=== PATIENT | female | born 1965 | race Caucasian/White ===

== ENCOUNTER 2023-09-13 05:34 | Emergency (ER) | payer BC, SELFPAY ==
[2023-09-13 05:38] VITALS: BP 126/76
[2023-09-13 05:52] VITALS: BMI 28.5
[2023-09-13 06:00] VITALS: BP 107/59
--- NOTE | 2023-09-13 06:08 | EDRN ---
Pt celebrated her anniversary last night - had salmon, creme brulee, champagne and a raspberry/lemonade drink. Pt woke at 0405 with pressure in the center of her chest radiating straight through to her back, in between shoulder blades. Pt was
sweaty when she woke however pt says she usually wakes in a sweat 'but this was different.' Pt rolled onto her L side to try and relieve the pressure. Pt got up and walked around, then got dizzy and her palms were sweaty. Pt thought she might be
getting anxious and tried to calm herself with exercises. Pt did not take any medication for chest pain. Pain constant, worse if she takes a deep breath. No recent airplane or long car ride travel. No calf pain or increased swelling. Pt notes
some swelling when she is on her feet for long periods of time. Pt had waves of nausea on the way to the hospital. No vomiting, fever/chills/cough, abdominal pain.
[2023-09-13 06:17] LABS: % Basophils 0.9 % (0-2); % Eosinophils 2.3 % (0-6); % Immature Granulocytes 0.3 % (0-0.5); % Lymphocytes 38.5 % (20.5-51.1); % Monocytes 7.7 % (1.7-9.3); % Neutrophils 50.3 % (42.2-75.2); Absolute Basophils 0.1 10^3/uL (0-0.2); Absolute Eosinophils 0.2 10^3/uL (0-0.7); Absolute Lymphocytes 2.5 10^3/uL (1.2-3.4); Absolute Monocytes 0.5 10^3/uL (0.1-0.6); Absolute Neutrophils 3.3 10^3/uL (1.4-6.5); Hematocrit 37.2 % (37.0-47.0); Hemoglobin 13.1 g/dL (12.0-16.0); Mean Corp Hgb Conc. 35.2 g/dL (33.0-37.0); Mean Corpuscular Volume 88.2 fL (81.0-99.0); Mean Platelet Volume 9.7 fL (7.4-10.4); Nucleated Red Blood Cells % 0 %; Platelet Count 275 10^3/uL (130-400); Red Blood Cell Count 4.22 10^6/uL (4.20-5.40); Red Cell Dist. Width 12.3 % (11.5-14.5); White Blood Cell Count 6.6 10^3/uL (4.8-10.8)
[2023-09-13 06:35] LABS: ALT (SGPT) 25 U/L (0-35); AST (SGOT) 36 U/L (14-36); Alkaline Phosphatase 86 U/L (38-126); Blood Urea Nitrogen 18 mg/dl (7-17); Calcium 9.6 mg/dl (8.4-10.2); Carbon Dioxide 27 mmol/L (22-30); Chloride 104 mmol/L (98-107); Estimated Creatinine Clearance 88 ml/min; Glucose 112 mg/dl (70-99); Potassium 3.7 mmol/L (3.5-5.1); Sodium 139 mmol/L (135-145); Total Bilirubin 0.3 mg/dl (0.2-1.3); Total Protein 6.9 g/dl (6.3-8.2); eGFR > 60.00
[2023-09-13 06:46] LABS: Troponin I < 0.012 ng/ml
[2023-09-13] MEDS: CARAFATE 1 GRAM PO (07:19)
[2023-09-13 07:26] VITALS: BP 111/75
[2023-09-13 07:44] LABS: D-Dimer 0.37 ug/mlFEU (0.00-0.50)
--- NOTE | 2023-09-13 08:14 | ED.GENMED ---
History of Present Illness
General
Chief Complaint: Chest Pain
Source: patient, records and spouse
Exam Limitations: none
Time Seen by Provider: 09/13/23 06:17
Nursing documentation reviewed up to this point in time: agreed with
Travel History
Have you had any contact with someone who has COVID-19?: No
Do you have any symptoms of coronavirus? Fever > 100 degrees, chills, cough, shortness of breath, sore throat, loss of taste or smell, muscle aches, or headache?: No
History of Present Illness
History of Present Illness:
Patient is a 57-year-old female who presents to the emergency department complaining of a central chest pressure radiating into her upper chest and into her back. Patient feels like she cannot take a deep breath because the pain then becomes
stabbing. Patient feels sweaty palms. Patient did pass some gas with no relief. Patient denies shortness of breath, leg pain or swelling. Patient denies history of hypertension or diabetes. Patient does have strong family history as well as
elevated cholesterol which the HDL is high. Patient does not smoke. Patient has no history of PE or DVT. Patient denies any GI or symptoms. Patient denies fever or chills, nasal congestion, sore throat or cough. In July 2022 patient had an
exercise stress test along with an echocardiogram which were normal. Patient denies any recent exertional symptoms.
Past History
Past History
ED Past Medical History: Hypercholesterolemia and Psychiatric (anxiety/Depression); Negative HTN, IDDM or NIDDM
ED Past Surgical History: Gynecological (LEEP) and Tonsilectomy
Social History
Tobacco: Non-smoker
Family History
Family History: CAD
Review of Systems
Review of Systems
All Other Systems: ROS reviewed and negative except as documented in HPI and ROS
Constitutional: Reports no symptoms
EENT: Reports no symptoms
Respiratory: Reports no symptoms
Cardiac: Reports chest pain; Denies palpitations or syncope
ABD/GI: Reports no symptoms
: Reports no symptoms
Musculoskeletal: Reports no symptoms
Skin: Reports no symptoms
Neurological: Reports no symptoms
Hematologic/Lymphatic: Reports no symptoms
Psychiatric: Reports no symptoms
Phy Exam
Physical Exam
Physical Exam:
Physical Exam
General: mild distress, alert and appropriate, well nourished, well hydrated
HENT: Normocephalic, supple with no lymphadenopathy, no thyromegaly
Eyes: Clear sclera, conjuctiva without injection
Heart: Regular rhythm and rate. No S3, S4. No murmur. No NVD, bruit
Lungs: No respiratory distress, no stridor, lung sounds clear and equal bilaterally, chest wall symmetrical and nontender
Abdomen: Soft, nontender, no organomegaly, no CVA tenderness, BS good
Neuro: Alert and oriented x 3, CN II - XII intact, no motor focality, no cerebellar dysfunction
Skin: no rash
Psychiatric: well kept. interactive and cooperative
Extremities: No edema, cyanosis, tenderness, Good and equal peripheral pulses.
Scores
Heart Score for Chest Pain Patients
STEMI patient?: No
History: Slightly or Non-Suspicious
ECG: Normal
Age: >45 - <65 years
Risk Factors: 1 or 2 Risk Factors
Troponin: </= Normal Limit
Heart Score for Chest Pain Patients: 2
Heart Score Risk: 2.5% MACE over next 6 weeks
Course
Orders/Labs/Results
Orders:
Orders
09/13/23 05:37
EKG [Electrocardiogram (*1)] Urgent
Reason for Study: Chest Pain
EKG- Treatment ONCE
09/13/23 05:50
Cardiac Monitoring- Treatment ONCE
IV Insert/Care/Rem.- Treatment PRN
O2 Therapy [RESP] Urgent
Titrate/Wean O2 to maintain O2 sat greater than (%): 90
Special Instructions: Maintain sats >/=90%
Pulse Ox/spot Check [RESP] Urgent
Quantity: 1
Special Instructions: ON ROOM AIR
09/13/23 06:01
Complete Blood Count/With Diff Urgent
Comprehensive Metabolic Panel Urgent
Troponin I Urgent
09/13/23 06:41
Mag Hydrox/Al Hydrox/Simeth [Maalox] 30 ml Phenobarb/Hyoscy/Atropine/Scop [] 10 ml Viscous Lidocaine 2% [Xylocaine Viscous Cup] 10 ml PO NOW
Pantoprazole [Protonix IV] 80 mg IV NOW STA
Sucralfate [Carafate] 1 gram PO NOW STA
09/13/23 07:02
D-Dimer Urgent
09/13/23 07:07
Mag Hydrox/Al Hydrox/Simeth [Maalox] 30 ml .ROUTE .STK-MED ONE
Phenobarb/Hyoscy/Atropine/Scop [] 10 ml .ROUTE .STK-MED ONE
Viscous Lidocaine 2% [Xylocaine Viscous Cup] 15 ml .ROUTE .STK-MED ONE
09/13/23 07:54
EKG- Treatment ONCE
09/13/23 09:00
Electrocardiogram (*1) Urgent
Reason for Study: Chest Pain
Troponin I Urgent
09/13/23 09:22
0.9% Sodium Chloride 1000 ml [Nss] 1,000 ml IV BOLUS
Ketorolac [Toradol] 15 mg IV NOW STA
Ondansetron Injectable [Zofran] 4 mg IV NOW STA
09/13/23 09:23
CT Chest Pe Study Urgent
Comment:
Reason For Exam: severe right chest pain
09/13/23 09:46
Mag Hydrox/Al Hydrox/Simeth [Maalox] 30 ml PO NOW STA
Abnormal Lab Results
09/13/23
06:01
BUN 18 H mg/dl
(717)
Glucose 112 H mg/dl
(70-99)
09/13/23 06:01
09/13/23 06:01
Vital Signs
Initial and Last Documented VS:
Initial Vital Signs
Temp Pulse Resp BP Pulse Ox
97.9 F 62 17 126/76 100
09/13/23 05:38 09/13/23 05:38 09/13/23 05:38 09/13/23 05:38 09/13/23 05:38
Last Documented Vital Signs
Temp Pulse Resp BP Pulse Ox
97.9 F 84 19 118/78 98
09/13/23 05:38 09/13/23 11:07 09/13/23 11:07 09/13/23 11:07 09/13/23 11:07
*Radiology
Radiology exam reviewed: other (na)
*Pulse Oximetry
Patient hypoxic: no
*EKG
Interpreted by ED Provider?: Yes
EKG Intrepretation Date: 09/13/23
EKG Intrepretation Time: 08:19
Interpretation: normal
Comparison EKG: no changes
Heart Rate: 63
Rate: normal
Rhythm: sinus
Vinton: normal axis
Interval: normal interval
QRS Pattern: normal QRS
Ischemia: no ischemia
*Dry Dip Worker Interpretation
Rate: normal
Interpretation: normal
Heart Rate: 65
Rhythm: sinus
*Critical Care Note
Total Time (30-74mins, 75-104mins- exclusive of procedures): Not Applicable
Update Note
Update Note:
Patient did not want to GI cocktail or the Protonix. Patient now having more severe pain on the right. Patient's D-dimer is normal I doubt PE or dissection however given the degree of the patient's pain we will do a CT of the chest. This could
all be musculoskeletal. Discussed the findings with the patient. Does not appear to be cardiac and I be surprised if it is gallbladder or dissection. May be GI in musculoskeletal.
Patient feels much improved with the Toradol. Patient's workup is totally negative which is not surprising.
ED Attending Note
-
Portions of this chart may have been created with voice recognition software.� Occasional wrong word or��sound alike� substitutions may have occurred due to the inherent limitations of voice recognition software.
Discharge Plan
Departure
Patient Disposition: Home (Routine Discharge)
Date of Disposition: 09/13/23
Time of Disposition: 12:15
Patient with high blood pressure during this ER visit?: No
Condition: Fair
Covid-19: Not Applicable
Discharge Problem:
Non-cardiac chest pain
Instructions: Chest Pain That Is Not Caused by the Heart (DC), Costochondritis (DC)
Prescriptions:
New
ketorolac 10 mg tablet
10 mg PO QID PRN (Reason: pain) Qty: 20 0RF
Referrals:
Rodrigo Tran, DO [Family Provider] - Follow up in 5-7 days
Interventions
Interventions:
*Risk Screen - Suicide Last Done: 09/13/23 05:53
*General Assessment Last Done: 09/13/23 05:53
*Neglect/Abuse Screening Last Done: 09/13/23 05:53
ED- Fall Risk Assessment Last Done: 09/13/23 06:03
*ED COVID-19 Vaccine History Last Done: 09/13/23 05:53
ED- Cardiac Assessment Last Done: 09/13/23 05:57
Discharge Date and Time
Print Language: MONGOLIAN
[2023-09-13 08:26] VITALS: BP 115/71
[2023-09-13] MEDS: NSS 1000 IV (09:28)
[2023-09-13] MEDS: TORADOL 15 MG IV (09:29)
[2023-09-13] MEDS: ZOFRAN 4 MG IV (09:29)
[2023-09-13] MEDS: MAALOX 30 ML PO (09:47)
[2023-09-13 10:01] LABS: Troponin I < 0.012 ng/ml
[2023-09-13 11:07] VITALS: BP 118/78
== END 2023-09-13 12:24 | disposition home or self-care (01) ==
LOC: EMR 05:34
PROVIDERS: EMERGENCY PHYSICIAN Emergency Medicine; FAMILY PHYSICIAN Family Medicine
DX: R07.89 Other chest pain (principal)
CPT/HCPCS: 99285; 96374; 96375 ×2; 96361; 71275; 80053; 84484; 85025; 85379; 93005; Q9967

== ENCOUNTER → 2023-09-19 13:04 | Outpatient (REF) | payer BC, SELFPAY ==
[2023-09-19 14:02] LABS: Urine Albumin Negative (Neg - Trace); Urine Bilirubin Negative (Negative); Urine Character Clear (Clear); Urine Color Yellow; Urine Glucose Negative (Negative); Urine Ketone Negative (Negative); Urine Leukocyte Negative (Negative); Urine Nitrite Negative (Negative); Urine Occult Blood Negative (Negative); Urine Specific Gravity 1.025 (<1.030); Urine Urobilinogen Negative (Neg - 1+)
== END ==
LOC: REG 13:04
PROVIDERS: ATTENDING PHYSICIAN Family Medicine
DX: N39.0 Urinary tract infection, site not specified (principal)
CPT/HCPCS: 81003

== ENCOUNTER → 2024-01-10 14:15 | Outpatient (REF) | payer BC, SELFPAY ==
[2024-01-10 15:06] LABS: Urine Albumin Negative (Neg - Trace); Urine Bilirubin Negative (Negative); Urine Character Clear (Clear); Urine Color Yellow; Urine Glucose Negative (Negative); Urine Ketone Negative (Negative); Urine Leukocyte 1+ (Negative); Urine Nitrite Negative (Negative); Urine Occult Blood Negative (Negative); Urine Urobilinogen Negative (Neg - 1+)
[2024-01-10 15:14] LABS: Urine Mucus Few; Urine Squamous Cell >30 /LPF (Few)
[2024-01-10 15:15] LABS: Urine Bacteria Few (Negative); Urine Red Blood Cell 0-2 /HPF (0-2)
[2024-01-10 15:19] LABS: % Basophils 0.7 % (0-2); % Eosinophils 0.9 % (0-6); % Immature Granulocytes 0.2 % (0-0.5); % Lymphocytes 27.1 % (20.5-51.1); % Neutrophils 66.1 % (42.2-75.2); Absolute Eosinophils 0.1 10^3/uL (0-0.7); Absolute Lymphocytes 1.5 10^3/uL (1.2-3.4); Absolute Monocytes 0.3 10^3/uL (0.1-0.6); Absolute Neutrophils 3.6 10^3/uL (1.4-6.5); Hematocrit 43.6 % (37.0-47.0); Hemoglobin 14.8 g/dL (12.0-16.0); Mean Corp Hgb Conc. 33.9 g/dL (33.0-37.0); Mean Corpuscular Hgb 29.8 pg (27.0-31.0); Mean Corpuscular Volume 87.9 fL (81.0-99.0); Mean Platelet Volume 10.5 fL (7.4-10.4); Nucleated Red Blood Cells % 0 %; Platelet Count 320 10^3/uL (130-400); Red Blood Cell Count 4.96 10^6/uL (4.20-5.40); Red Cell Dist. Width 12.7 % (11.5-14.5); White Blood Cell Count 5.4 10^3/uL (4.8-10.8)
[2024-01-10 15:42] LABS: ALT (SGPT) 26 U/L (0-35); AST (SGOT) 27 U/L (14-36); Albumin 4.8 g/dl (3.5-5.0); Alkaline Phosphatase 77 U/L (38-126); Blood Urea Nitrogen 16 mg/dl (7-17); Carbon Dioxide 28 mmol/L (22-30); Chloride 102 mmol/L (98-107); Glucose 95 mg/dl (70-99); HDL Cholesterol 76 mg/dl; LDL Cholesterol, Calculated 187 mg/dl; Potassium 4.3 mmol/L (3.5-5.1); Sodium 141 mmol/L (135-145); Total Bilirubin 0.9 mg/dl (0.2-1.3); Total Cholesterol 280 mg/dl (50-199); Total Protein 7.7 g/dl (6.3-8.2); Triglyceride 88 mg/dl (10-149); Very Low Density Lipoprotein 17 mg/dl (0-30); eGFR > 60.00
[2024-01-10 16:00] LABS: Free T3 2.92 pg/ml (2.77-5.27); Free T4 1.04 ng/dl (0.78-2.19)
[2024-01-10 16:13] LABS: TSH 0.91 uIU/ml (0.47-4.68)
[2024-01-10 16:20] LABS: CA 125 6.4 U/mL (0-35)
[2024-01-11 10:01] LABS: Glycohemoglobin (HgbA1c) 5.3 % (4.0-5.6)
== END ==
LOC: REG 14:15
PROVIDERS: ATTENDING PHYSICIAN Family Medicine
DX: Z00.00 Encounter for general adult medical examination without abnormal findings (principal); Z80.41 Family history of malignant neoplasm of ovary; E78.5 Hyperlipidemia, unspecified; R74.8 Abnormal levels of other serum enzymes; D72.9 Disorder of white blood cells, unspecified; N39.0 Urinary tract infection, site not specified; Z13.29 Encounter for screening for other suspected endocrine disorder; Z13.1 Encounter for screening for diabetes mellitus
CPT/HCPCS: 36415; 80053; 80061; 81003; 81015; 83036; 84439; 84443; 84481; 85025; 86304

== ENCOUNTER → 2024-04-02 15:08 | Outpatient (REF) | payer BC, SELFPAY ==
[2024-04-02 16:04] LABS: % Eosinophils 1.7 % (0-6); % Immature Granulocytes 0.2 % (0-0.5); % Lymphocytes 35.3 % (20.5-51.1); % Monocytes 9.1 % (1.7-9.3); % Neutrophils 52.7 % (42.2-75.2); Absolute Eosinophils 0.1 10^3/uL (0-0.7); Absolute Lymphocytes 1.5 10^3/uL (1.2-3.4); Absolute Monocytes 0.4 10^3/uL (0.1-0.6); Absolute Neutrophils 2.2 10^3/uL (1.4-6.5); Hematocrit 41.3 % (37.0-47.0); Hemoglobin 13.8 g/dL (12.0-16.0); Mean Corp Hgb Conc. 33.4 g/dL (33.0-37.0); Mean Corpuscular Hgb 30.6 pg (27.0-31.0); Mean Corpuscular Volume 91.6 fL (81.0-99.0); Nucleated Red Blood Cells % 0 %; Platelet Count 261 10^3/uL (130-400); Red Blood Cell Count 4.51 10^6/uL (4.20-5.40); Red Cell Dist. Width 12.6 % (11.5-14.5); White Blood Cell Count 4.2 10^3/uL (4.8-10.8)
== END ==
LOC: REG 15:08
PROVIDERS: ATTENDING PHYSICIAN Family Medicine
DX: K92.1 Melena (principal)
CPT/HCPCS: 36415; 83520; 85025; 87328; 87329

== ENCOUNTER → 2025-02-24 11:59 | Outpatient (REF) | payer BC, SELFPAY ==
[2025-02-24 13:00] LABS: Urine Character Clear (Clear)
[2025-02-24 13:37] LABS: Urine Squamous Cell >30 /LPF (Few)
[2025-02-24 13:38] LABS: Urine Red Blood Cell 0-2 /HPF (0-2); Urine White Cell 50-60 /HPF (0-5)
== END ==
LOC: REG 11:59
PROVIDERS: ATTENDING PHYSICIAN Physician Assistant Medical
DX: N39.0 Urinary tract infection, site not specified (principal)
CPT/HCPCS: 81003; 81015; 87086

== ENCOUNTER → 2025-02-26 17:44 | Outpatient (REF) | payer BC, SELFPAY ==
[2025-03-03 19:02] LABS: HPV, High Risk Not Detected; HPV, High Risk Source Cervical
== END ==
LOC: CPAP 17:44
PROVIDERS: ATTENDING PHYSICIAN Obstetrics & Gynecology
DX: Z11.51 Encounter for screening for human papillomavirus (HPV) (principal); Z01.419 Encounter for gynecological examination (general) (routine) without abnormal findings
CPT/HCPCS: 87624; G0123

== ENCOUNTER → 2025-03-02 10:13 | Outpatient (REF) | payer BC, SELFPAY ==
[2025-03-02 11:38] LABS: Hematocrit 42.9 % (37.0-47.0); Hemoglobin 14.6 g/dL (12.0-16.0); Mean Corp Hgb Conc. 34.0 g/dL (33.0-37.0); Mean Corpuscular Volume 92.9 fL (81.0-99.0); Nucleated Red Blood Cells % 0 %; Platelet Count 290 10^3/uL (130-400); Red Cell Dist. Width 12.6 % (11.5-14.5)
[2025-03-02 12:08] LABS: Glycohemoglobin (HgbA1c) 5.4 % (4.0-5.9)
[2025-03-02 12:13] LABS: ALT (SGPT) 94 U/L (0-35); AST (SGOT) 152 U/L (14-36); Albumin 4.6 g/dl (3.5-5.0); Alkaline Phosphatase 83 U/L (38-126); Blood Urea Nitrogen 17 mg/dl (7-17); Calcium 9.7 mg/dl (8.4-10.2); Chloride 101 mmol/L (98-107); Glucose 94 mg/dl (70-99); HDL Cholesterol 68 mg/dl; LDL Cholesterol, Calculated 146 mg/dl; Potassium 4.4 mmol/L (3.5-5.1); Sodium 139 mmol/L (135-145); Total Protein 7.8 g/dl (6.3-8.2); Very Low Density Lipoprotein 28 mg/dl (0-30); eGFR > 60.00
[2025-03-02 12:21] LABS: Carbon Dioxide 32 mmol/L (22-30)
== END ==
LOC: REG 10:13
PROVIDERS: ATTENDING PHYSICIAN Physician Assistant; FAMILY PHYSICIAN Family Medicine
DX: Z00.00 Encounter for general adult medical examination without abnormal findings (principal)
CPT/HCPCS: 36415; 80053; 80061; 83036; 84443; 85025

== ENCOUNTER → 2025-03-17 14:59 | Outpatient (REF) | payer BC, SELFPAY | LOC: RAD 14:59 | PROVIDERS: ATTENDING PHYSICIAN Obstetrics & Gynecology; FAMILY PHYSICIAN Family Medicine | DX: Z12.79 Encounter for screening for malignant neoplasm of other genitourinary organs (principal); Z80.41 Family history of malignant neoplasm of ovary; D25.1 Intramural leiomyoma of uterus; Z78.0 Asymptomatic menopausal state | CPT/HCPCS: 76830; 76856 ==

== ENCOUNTER → 2025-03-27 13:14 | Outpatient (REF) | payer BC, SELFPAY | LOC: WDC 13:14 | PROVIDERS: ATTENDING PHYSICIAN Obstetrics & Gynecology; FAMILY PHYSICIAN Family Medicine | DX: Z12.31 Encounter for screening mammogram for malignant neoplasm of breast (principal) | CPT/HCPCS: 77063; 77067 ==

== ENCOUNTER 2025-03-30 01:40 | Emergency (ER) | payer BC, SELFPAY ==
[2025-03-30 01:42] VITALS: BP 130/96
--- NOTE | 2025-03-30 02:18 | ED.GENMED ---
History of Present Illness
General
Chief Complaint: Musculo-Skeletal Complaint
Source: patient
Exam Limitations: none
Time Seen by Provider: 03/30/25 01:58
Nursing documentation reviewed up to this point in time: agreed with
History of Present Illness
History of Present Illness:
59-year-old female with no past medical history presents to the ER today with concerns of finger pain. She reports that she was playing with her dog and she tripped over her dog and fell, hitting her finger to the table. Contrary to triage note,
she did not get bitten by her dog and there is no puncture of her thumb by the dog's tooth. She reports that she endured a small abrasion near the thumb but no puncture wound. She not hit her head when she fell. She not lose consciousness. She
denies any neck pain. She denies any pain in her elbow or her wrists.
Past History
Past History
ED Past Medical History: Hypercholesterolemia and Psychiatric (anxiety/Depression); Negative HTN, IDDM or NIDDM
ED Past Surgical History: Gynecological (LEEP) and Tonsilectomy
Social History
Tobacco: Non-smoker
Family History
Family History: CAD
Review of Systems
Review of Systems
All Other Systems: ROS reviewed and negative except as documented in HPI and ROS
Phy Exam
Physical Exam
Physical Exam:
General: Patient is well appearing and in no acute distress; non-toxic
Skin: Warm and dry, no rashes or lesions, brisk capillary refill
Head: Normocephalic, atraumatic
Eyes: Sclera non-icteric. EOMs intact.
Cardiac: Regular rate and rhythm, no murmurs
Peripheral Vascular: No lower extremity swelling or edema, 2+ radial and ulnar pulses
Pulm: Normal respiratory effort
Musculoskeletal: Swelling noted to base of left 4th finger with medical distal angulation
Neuro: CN II-XII intact, no focal neurologic deficits.
Psychiatric: Appropriate mood and affect.
Course
Orders/Labs/Results
Orders:
Orders
03/30/25 01:45
Finger(s)/Thumb 2 View Lt [CR Finger(s)/thumb Min 2 Vw Lt] Urgent
Comment:
Reason For Exam: FALL
Indicate Which Finger:: Ring Finger
03/30/25 02:59
CR Finger(s)/thumb Min 2 Vw Lt Urgent
Comment:
Reason For Exam: reduction attempt
03/30/25 04:11
Ibuprofen [Motrin] 600 mg .ROUTE .STK-MED ONE
03/30/25 04:12
Ibuprofen [Motrin] 600 mg PO NOW STA
Vital Signs
Initial and Last Documented VS:
Initial Vital Signs
Temp Pulse Resp BP Pulse Ox
98 F 86 20 130/96 100
03/30/25 01:42 03/30/25 01:42 03/30/25 01:42 03/30/25 01:42 03/30/25 01:42
Last Documented Vital Signs
Temp Pulse Resp BP Pulse Ox
98 F 86 20 130/96 100
03/30/25 01:42 03/30/25 01:42 03/30/25 01:42 03/30/25 01:42 03/30/25 02:18
Procedures
Joint/Fracture Reduction
Left Fourth Finger:
Indication for procedure:: angulated fracture
Procedure completed by: Chastity Montgomery PA-C
Consent form signed: No
If no, reason: Emergency procedure (verbal consent obtained)
Anesthesia/sedation: 1% Lidocaine
Injury was: closed
Further treatement: needs further treatment (Needs ortho evaluation)
Post reduction exam: stable
Capillary Refill: normal
Normal distal neurovascular exam?: Yes
Digital Block
Location of injection for digital block: base of digit
Indiction for Digital Block: orthopedic procedure
Was sensory exam normal prior to exam?: intack pin prick
Type of anesthesia: 1% Lidocaine w/o EPI
Complications: none- partial anesthesia
MDM/Problems Addressed
Differential Diagnosis Includes:
ddx include joint dislocation, fracture, finger sprain
MDM/Problems Addressed:
59-year-old female presents the ER today with concerns of finger pain after a fall. She tripped and fell over her dog and hit her finger on a table. On exam, she is swelling at the base of fourth metacarpal and she is found a complex fracture of
her finger on x-ray. Reviewed case with ED attending. Performed a digital block and attempted to reduce the fracture. Post reduction films demonstrate some degree of improvement in angulation of fracture. She was splinted. Dr. cShaefer made aware
of case and films are sent to them for close outpatient follow-up. She is neurovascularly intact. Patient stable for discharge. She will take ibuprofen for pain.
*Pulse Oximetry
SaO2: 100
Oxygen Mode of Delivery: Room air
Patient hypoxic: no
*Critical Care Note
Total Time (30-74mins, 75-104mins- exclusive of procedures): Not Applicable
ED Attending Note
-
Portions of this chart may have been created with voice recognition software.� Occasional wrong word or��sound alike� substitutions may have occurred due to the inherent limitations of voice recognition software.
Discharge Plan
Departure
Patient Disposition: Home (Routine Discharge)
Date of Disposition: 03/30/25
Time of Disposition: 04:12
Patient with high blood pressure during this ER visit?: Yes
Condition: Good
Discharge Problem:
Fracture of fourth metacarpal bone
Instructions: BLOOD PRESSURE, Fractures- Metacarpal
Prescriptions:
No Action
ketorolac 10 mg tablet
10 mg PO QID PRN (Reason: pain) Qty: 20 0RF
Referrals:
Rodrigo Tran DO [Family Provider, Family Practice]
Carroll Schaefer MD [Active, Orthopedics] - Call in 1-3 days for appt
Activity Restrictions/Additional Instructions:
Please call Dr. Schaefer's office later today to schedule an appointment. Please keep your hand in the splint until then. You can take Tylenol and Motrin as needed for pain.
PLEASE RETURN TO THE ER SHOULD YOU DEVELOP PALLOR, INCREASING PAIN OR SWELLING, LOSS OF SENSATION, OR ANY OTHER SIGNS OR SYMPTOMS WORRISOME TO YOU.
Interventions
Interventions:
*Risk Screen - Suicide Last Done: 03/30/25 01:42
*General Assessment Last Done: 03/30/25 03:13
*Neglect/Abuse Screening Last Done: 03/30/25 01:42
*ED COVID-19 Vaccine History Last Done: 03/30/25 03:13
*ED Influenza Vaccine History Last Done: 03/30/25 03:13
[facility] Fall Risk Assessment Tool Last Done: 03/30/25 04:43
*Nursing Disposition Last Done: 03/30/25 04:43
ED-Musculoskeletal Assessment Last Done: 03/30/25 03:13
Discharge Date and Time
Discharge Date/Time: 03/30/25 04:45
Print Language: AZERI
[2025-03-30] MEDS: MOTRIN 600 MG PO (04:13)
== END 2025-03-30 04:45 | disposition home or self-care (01) ==
LOC: EMR 01:40
PROVIDERS: EMERGENCY PHYSICIAN Student in an Organized Health Care Education/Training Program; FAMILY PHYSICIAN Family Medicine
DX: S62.325A Displaced fracture of shaft of fourth metacarpal bone, left hand, initial encounter for closed fracture (principal); W01.0XXA Fall on same level from slipping, tripping and stumbling without subsequent striking against object, initial encounter; E78.00 Pure hypercholesterolemia, unspecified
CPT/HCPCS: 26725; 99283; 73140

== ENCOUNTER 2025-04-06 06:28 | Day surgery (SDC) | payer BC, SELFPAY ==
[2025-04-06] VITALS (10 sets, daily range): BP systolic 106–135; BP diastolic 70–83; BMI 27.0
[2025-04-06 13:26] LABS: Hematocrit 40.0 % (37.0-47.0); Hemoglobin 13.5 g/dL (12.0-16.0); Mean Corp Hgb Conc. 33.8 g/dL (33.0-37.0); Mean Corpuscular Volume 91.1 fL (81.0-99.0); Platelet Count 262 10^3/uL (130-400); Red Cell Dist. Width 12.4 % (11.5-14.5)
[2025-04-06] MEDS: NORMOSOL-R/PLASMALYTE-A 1000 IV (13:34)
[2025-04-06] MEDS: TYLENOL 1000 MG PO (13:35)
[2025-04-06] MEDS: CELEBREX 200 MG PO (13:35)
[2025-04-06 13:51] LABS: Blood Urea Nitrogen 11 mg/dl (7-17); Calcium 9.5 mg/dl (8.4-10.2); Carbon Dioxide 26 mmol/L (22-30); Chloride 104 mmol/L (98-107); Estimated Creatinine Clearance 86 ml/min; Glucose 100 mg/dl (70-99); Potassium 4.1 mmol/L (3.5-5.1); Sodium 137 mmol/L (135-145); eGFR > 60.00
[2025-04-06 15:30] LABS: ALT (SGPT) 15 U/L (0-35); AST (SGOT) 18 U/L (14-36)
[2025-04-06] MEDS: SUBLIMAZE 25 MCG IV (17:37)
== END 2025-04-06 19:10 | disposition home or self-care (01) ==
LOC: SDS 06:28
PROVIDERS: ATTENDING PHYSICIAN Orthopaedic Surgery
DX: S62.615A Displaced fracture of proximal phalanx of left ring finger, initial encounter for closed fracture (principal); X58.XXXA Exposure to other specified factors, initial encounter
CPT/HCPCS: 26735; 80048; 84450; 84460; 85027; 93005; C1713